=== PATIENT | female | born 1985 | race Caucasian/White ===

== ENCOUNTER 2016-09-07 14:49 | Emergency (ER) | payer MEDICAID ==
[~2016-09-07 14:49] MED LIST: BACTRIM DS TAB1 EAC2 PO; BACTRIM DS TABL1 TAB PO; ERYTHROMYCIN500 MG PO; FLEXERIL10 MG PO; MACROBID 100 M100 M1 PO; MEDROL4 MG/DOSE- PO; NO HOME MEDICATION XX; NO MEDS; PERCOCET 5/3251 TAB PO; PRENATA CHEWAB1 EAC1 PO; PROAIR HFA8.5 GM INH; PROGESTERONE200 M1 PO; TAMIFLU75 MG PO; ZOFRAN ODT4 MG PO; ZOFRAN4 M2 PO
[2016-09-07] MEDS ORDERED: ENDOMETRIN100 MG VG (15:08)
[2016-10-12] MEDS ORDERED: ONE A DAY PREN1 EACH PO (20:16)
[2016-10-12] MEDS ORDERED: FLAGYL500 M1 PO (21:32)
== END 2016-09-07 16:20 | disposition left against medical advice (07) ==
LOC: EDMED 14:49
DX: O26.891 Other specified pregnancy related conditions, first trimester (principal); M54.5 Low back pain; Z3A.10 10 weeks gestation of pregnancy; Z53.29 Procedure and treatment not carried out because of patient's decision for other reasons

== ENCOUNTER 2016-12-15 21:26 | Observation (INO) | payer MEDICAID ==
[~2016-12-15] VITALS: Ht 172.7 cm; Wt 59.4 kg
[~2016-12-15 21:26] MED LIST changes: +ENDOMETRIN100 MG VG; +FLAGYL500 M1 PO; +ONE A DAY PREN1 EACH PO
[2016-12-15 21:56] LABS: URINE APPEARANCE CLOUDY; URINE BILIRUBIN NEGATIVE (NEG); URINE BLOOD MODERATE (NEG); URINE COLOR YELLOW; URINE GLUCOSE (UA) NEGATIVE (NEG); URINE KETONE NEGATIVE (NEG); URINE LEUKOCYTE ESTERASE POSITIVE (NEG); URINE NITRITE NEGATIVE (NEG); URINE PROTEIN SMALL (NEG)
[2016-12-15] MEDS ORDERED: NO HOME MEDICATIONS (21:58)
[2016-12-15 22:05] LABS: URINE AMORPHOUS 2+; URINE BACTERIA 1+
[2016-12-15 22:17] LABS: BASO % 0.3 % (0-2); EOS % 1.7 % (0-7); EOSINOPHIL ABSOLUTE COUNT 0.1 tho/cmm (0.0-0.7); HCT-HEMATOCRIT 28.4 % (34.0-49.0); HGB-HEMOGLOBIN 9.3 gm/dl (12.0-15.5); IMMATURE GRANULOCYTES ABSOLUTE 0.02 tho/cmm (0-0.03); IMMATURE GRANULOCYTES PERCENT 0.3 % (0-0.3); LYMPH % 24.2 % (20-45); LYMPH ABSOLUTE COUNT 1.9 tho/cmm (0.8-4.5); MCH (MEAN CORPUSCULAR HGB) 26.8 pg (28.0-32.0); MCHC MEAN CORPUSCULAR HGB CONC 32.7 % (32.0-36.0); MCV (MEAN CELL VOLUME) 81.8 fl (82.0-96.0); MEAN PLATELET VOLUME 8.4 cmc (9.4-12.4); MONO % 5.6 % (0-12); MONOCYTE ABSOLUTE COUNT 0.4 tho/cmm (0.0-1.2); NEUTROPHIL ABSOLUTE COUNT 5.3 tho/cmm (1.6-8.0); NEUTROPHIL-AUTOMATED 5.3 tho/cmm (1.6-8.0); NEUTROPHILS % 67.9 % (40-80); PLATELET COUNT 207 tho/cmm (150-450); RED BLOOD COUNT 3.47 mil/cmm (4.00-5.20); RED CELL DISTRIBUTION WIDTH 13.9 % (12.4-16.4); WHITE BLOOD COUNT 7.9 tho/cmm (4.0-10.0)
[2016-12-15 22:43] LABS: ALB/GLOB RATIO 0.5 (0.8-2.0); ALBUMIN 2.5 g/dl (3.5-5.0); ALKALINE PHOSPHATASE 87 U/L (33-138); ALT/SGPT <10 U/L (12-78); ANION GAP 12 mmol/L (0-20); AST/SGOT 17 U/L (10-40); BILIRUBIN,TOTAL 0.3 mg/dl (0-1.5); BLOOD UREA NITROGEN 6 mg/dl (6-24); C-REACTIVE PROTEIN 1.2 mg/dl (0-0.9); CARBON DIOXIDE-VENOUS 20 mmol/L (22-32); CHLORIDE 108 mmol/l (96-110); CREATININE 0.59 mg/dl (0.50-1.10); GLUCOSE 94 mg/dL (70-110); POTASSIUM 3.4 mmol/L (3.7-5.1); SODIUM 137 mmol/L (135-145); eGFR VALUE FOR BLACK >90 mL/Min
[2016-12-15 22:45] LABS: PROCALCITONIN <0.05 ng/ml (0.05-0.09)
== END 2016-12-16 18:05 ==
LOC: EDMED 21:26 → LDR 23:00 → EMR2 23:00 → LDR 12-16 00:55
PROVIDERS: Emergency Medicine; ADMIT Advanced Practice Midwife
DX: O23.42 Unspecified infection of urinary tract in pregnancy, second trimester (principal); O98.61 Protozoal diseases complicating pregnancy; B60 Other protozoal diseases, not elsewhere classified; Z3A.25 25 weeks gestation of pregnancy; Z79.899 Other long term (current) drug therapy; Z88.0 Allergy status to penicillin; Z88.8 Allergy status to other drugs, medicaments and biological substances; Z87.891 Personal history of nicotine dependence
CPT/HCPCS: G0378; J2405; J7030

== ENCOUNTER 2016-12-22 18:54 | Observation (INO) | payer MEDICAID ==
[~2016-12-22] VITALS: Ht 172.7 cm; Wt 59.0 kg
[~2016-12-22 18:54] MED LIST changes: +NO HOME MEDICATIONS
[2016-12-22 20:11] LABS: URINE APPEARANCE HAZY; URINE BILIRUBIN NEGATIVE (NEG); URINE BLOOD MODERATE (NEG); URINE COLOR DARK YELLOW; URINE GLUCOSE (UA) SMALL (NEG); URINE KETONE NEGATIVE (NEG); URINE LEUKOCYTE ESTERASE POSITIVE (NEG); URINE NITRITE NEGATIVE (NEG); URINE PROTEIN SMALL (NEG); URINE SPECIFIC GRAVITY 1.015 (1.003-1.030)
[2016-12-22 20:21] LABS: URINE MUCUS 2+
[2016-12-22 20:22] LABS: URINE RBC 0-3 /[HPF] (0-5)
[2016-12-22 20:24] LABS: BASO % 0.3 % (0-2); EOS % 1.1 % (0-7); EOSINOPHIL ABSOLUTE COUNT 0.1 tho/cmm (0.0-0.7); HGB-HEMOGLOBIN 8.7 gm/dl (12.0-15.5); IMMATURE GRANULOCYTES ABSOLUTE 0.02 tho/cmm (0-0.03); IMMATURE GRANULOCYTES PERCENT 0.2 % (0-0.3); MCH (MEAN CORPUSCULAR HGB) 26.4 pg (28.0-32.0); MCHC MEAN CORPUSCULAR HGB CONC 32.2 % (32.0-36.0); MCV (MEAN CELL VOLUME) 82.1 fl (82.0-96.0); MEAN PLATELET VOLUME 8.3 cmc (9.4-12.4); MONO % 5.8 % (0-12); MONOCYTE ABSOLUTE COUNT 0.6 tho/cmm (0.0-1.2); NEUTROPHIL ABSOLUTE COUNT 7.7 tho/cmm (1.6-8.0); NEUTROPHIL-AUTOMATED 7.7 tho/cmm (1.6-8.0); NEUTROPHILS % 73.6 % (40-80); PLATELET COUNT 264 tho/cmm (150-450); RED BLOOD COUNT 3.29 mil/cmm (4.00-5.20); RED CELL DISTRIBUTION WIDTH 13.8 % (12.4-16.4); WHITE BLOOD COUNT 10.4 tho/cmm (4.0-10.0)
== END 2016-12-23 09:05 ==
LOC: LDR 18:54
PROVIDERS: Advanced Practice Midwife; ADMIT Advanced Practice Midwife
DX: O99.89 Other specified diseases and conditions complicating pregnancy, childbirth and the puerperium (principal); R50.9 Fever, unspecified; Z3A.26 26 weeks gestation of pregnancy; Z88.0 Allergy status to penicillin; Z88.8 Allergy status to other drugs, medicaments and biological substances